=== PATIENT | female | born 2000 | race Caucasian/White ===

== ENCOUNTER 2020-08-04 23:14 | Emergency (ER) | payer SELFPAY ==
--- NOTE | 2020-08-04 23:42 | EDM.PDOC ---
ED HPI GENERAL MEDICAL PROBLEM - General Stated Complaint: PAIN UNDER RIBS Time Seen by Provider: 08/04/20 23:45 Source of Information: Reports: Patient History Limitations: Reports: No Limitations - History of Present Illness INITIAL COMMENTS - FREE TEXT/NARRATIVE: Patient presented to the ED because of bilateral rib pain which is worse with movements and breathing. The pain is sharp,8/10. There is no asociated cough, fever, or chills. Bilateral Abdomen Pain Score (Numeric/FACES): 8 - Related Data Home Meds: Home Meds Multivitamin 1 each PO DAILY 08/04/20 [History] Naproxen 500 mg PO BID #15 tablet 08/04/20 [Rx] OLANZapine [ZyPREXA] 2.5 mg PO DAILY 08/04/20 [History] buPROPion [Wellbutrin] 150 mg PO DAILY 08/04/20 [History] ED ROS GENERAL - Review of Systems Review Of Systems: See Below Constitutional: Reports: No Symptoms HEENT: Reports: No Symptoms Respiratory: Reports: No Symptoms Cardiovascular: Reports: No Symptoms Endocrine: Reports: No Symptoms GI/Abdominal: Reports: No Symptoms Musculoskeletal: Reports: No Symptoms Skin: Reports: No Symptoms Neurological: Reports: No Symptoms Psychiatric: Reports: No Symptoms ED EXAM, GENERAL - Physical Exam Exam: See Below Exam Limited By: No Limitations General Appearance: Alert Ears: Normal External Exam Nose: Normal Inspection Throat/Mouth: Normal Inspection Head: Atraumatic Neck: Normal Inspection Respiratory/Chest: No Respiratory Distress, Other (tendernes below the left and right rib) GI/Abdominal: Normal Bowel Sounds, Soft, Non-Tender, No Organomegaly Rectal (Female) Exam: Normal Exam Back Exam: Normal Inspection, Full Range of Motion Extremities: Normal Inspection, Normal Range of Motion, Non-Tender Neurological: Alert, Oriented, CN II-XII Intact, Normal Cognition Psychiatric: Normal Affect, Normal Mood Skin Exam: Warm, Dry, Intact Course - Vital Signs Text/Narrative:: Refused Toradol 60 mg IM Last Recorded V/S: Last Vital Signs Temp 36.9 C 08/04/20 23:39 Pulse 66 08/04/20 23:39 Resp 16 08/04/20 23:39 BP 110/70 08/04/20 23:39 Pulse Ox 100 08/04/20 23:39 - Orders/Labs/Meds Meds: Medications Discontinued Medications Generic Name Dose Route Start Last Admin Trade Name Kevan PRN Reason Stop Dose Admin Ketorolac Tromethamine 60 mg 08/04/20 23:36 08/04/20 23:50 Toradol IM 08/04/20 23:37 60 mg ONETIME ONE Administration Departure - Departure Time of Disposition: 23:45 Disposition: Home, Self-Care 01 Clinical Impression: Pleurisy - Discharge Information Prescriptions: Naproxen 500 mg PO BID #15 tablet Instructions: Pleurisy, [id number] Referrals: PCP,None [Primary Care Provider] - Additional Instructions: Please read discharge instructions on pleurisy Naproxen 500 mg twice daily for 1 week Follow up with your doctor regarding your weight loss Sepsis Event Note (ED) - Focused Exam Vital Signs: Vital Signs Temp Pulse Resp BP Pulse Ox 08/04/20 23:39 36.9 C 66 16 110/70 100
[2020-08-04] MEDS: Ketorolac 60 MG/2 ML SDV IM ONE ×2 (23:44→23:50)
== END 2020-08-04 23:49 | disposition home or self-care (01) ==
LOC: FB.ED 23:14
DX: R09.1 Pleurisy (principal)
CPT/HCPCS: 99283; J1885

== ENCOUNTER 2020-09-12 02:55 | Emergency (ER) | payer SELFPAY ==
[2020-09-12] MEDS ORDERED: Acetaminophen 500 MG Tab PO ONE (03:11)
[2020-09-12] MEDS ORDERED: Cyclobenzaprine 10 MG Tab PO ONE (03:11)
[2020-09-12] MEDS ORDERED: Naproxen 500 MG Tab PO ONE (03:11)
--- NOTE | 2020-09-12 03:17 | EDM.PDOC ---
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 The pain intensifies with breathing and movents. there is no fever or chills/cough or cold symptoms. 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: Other (See Below) Other DIRECTOR GEOPHYSICAL LABORATORY History: Ovarian cysts Psychiatric History: Reports: Anxiety, Depression, OCD, PTSD - Infectious Disease History Infectious Disease History: Reports: Chicken Pox Social & Family History - Family History Family Medical History: No Pertinent Family History - Caffeine Use Caffeine Use: Reports: Tea ED ROS GENERAL - Review of Systems Review Of Systems: See Below Constitutional: Reports: No Symptoms HEENT: Reports: No Symptoms Respiratory: Reports: No Symptoms Cardiovascular: Reports: No Symptoms Endocrine: Reports: No Symptoms GI/Abdominal: Reports: No Symptoms : Reports: No Symptoms Musculoskeletal: Reports: No Symptoms Skin: Reports: No Symptoms Neurological: Reports: No Symptoms Psychiatric: Reports: No Symptoms ED EXAM, GENERAL - Physical Exam Exam: See Below Exam Limited By: No Limitations General Appearance: Alert, No Apparent Distress Eye Exam: Bilateral Eye: PERRL Ears: Normal External Exam, Normal Canal Nose: Normal Inspection, Normal Mucosa Throat/Mouth: Normal Inspection, Normal Lips, Normal Teeth, Normal Gums Head: Atraumatic, Normocephalic Neck: Normal Inspection, Supple, Non-Tender, Full Range of Motion Respiratory/Chest: No Respiratory Distress, Lungs Clear, Normal Breath Sounds Cardiovascular: Normal Peripheral Pulses, Regular Rate, Rhythm, No Edema, No Gallop GI/Abdominal: Normal Bowel Sounds, Soft, Non-Tender, No Organomegaly Back Exam: Normal Inspection, Full Range of Motion Extremities: Normal Inspection, Normal Range of Motion, Non-Tender Neurological: Alert, Oriented Course - Vital Signs Text/Narrative:: Naproxen 500 mg po x1 Tylenol 1000 mg po x1 Flexeril 10 mg PO x1 Last Recorded V/S: Last Vital Signs Temp 36.8 C 09/12/20 03:26 Pulse 83 09/12/20 03:26 Resp 18 09/12/20 03:26 BP 111/71 09/12/20 03:26 Pulse Ox 100 09/12/20 03:26 - Orders/Labs/Meds Meds: Medications Discontinued Medications Generic Name Dose Route Start Last Admin Trade Name Freq PRN Reason Stop Dose Admin Acetaminophen 1,000 mg 09/12/20 03:11 09/12/20 03:36 Tylenol Extra Strength PO 09/12/20 03:12 1,000 mg ONETIME ONE Administration Cyclobenzaprine HCl 10 mg 09/12/20 03:11 09/12/20 03:36 Flexeril PO 09/12/20 03:12 10 mg ONETIME ONE Administration Naproxen 500 mg 09/12/20 03:11 09/12/20 03:36 Naprosyn PO 09/12/20 03:12 500 mg ONETIME ONE Administration Departure - Departure Time of Disposition: 03:40 Disposition: Home, Self-Care 01 Condition: Good Clinical Impression: Muscle strain - Discharge Information Prescriptions: Cyclobenzaprine [Flexeril] 10 mg PO BID PRN #15 tab PRN Reason: Muscle Spasm Naproxen 500 mg PO BID PRN #15 tablet PRN Reason: Pain Instructions: Muscle Strain, [id number] Referrals: Kathryn Lewis NP [Primary Care Provider] - Forms: ED Department Discharge Additional Instructions: Please read discharge instructions on muscle strain Take the following medication all at the same time for better pain relief Naproxen 500 mg, tylenol 1000 mg and flexeril 10 mg twice daily for pain and muscle spasm Follow up as needed
== END 2020-09-12 03:37 | disposition home or self-care (01) ==
LOC: FB.ED 02:55
DX: S29.011A Strain of muscle and tendon of front wall of thorax, initial encounter (principal); F41.9 Anxiety disorder, unspecified; F32.9 Major depressive disorder, single episode, unspecified; Z79.899 Other long term (current) drug therapy; X50.0XXA Overexertion from strenuous movement or load, initial encounter; Y92.89 Other specified places as the place of occurrence of the external cause; Y99.0 Civilian activity done for income or pay
CPT/HCPCS: 99283; A9270

== ENCOUNTER 2020-09-21 14:00 | Emergency (ER) | payer MEDICAID ==
--- NOTE | 2020-09-21 14:52 | EDM.PDOC ---
ED HPI GENERAL MEDICAL PROBLEM - General Chief Complaint: General Stated Complaint: MUSCLE PAIN/BLOOD IN URINE Time Seen by Provider: 09/21/20 14:25 Source of Information: Reports: Patient History Limitations: Reports: No Limitations - History of Present Illness INITIAL COMMENTS - FREE TEXT/NARRATIVE: lower abd pain for one month , today not any worse , just could not get in to see her PCP , had been given naproxen and flexeril and both not working very well has low grade fever has no chills, no cough no nausea or vomiting has constipation diagnosed with PCOS has been on multiple psych medications Onset: Gradual Onset Date: 09/21/20 Duration: Week(s): (4), Getting Worse, Waxing/Waning Location: Reports: Abdomen Quality: Reports: Ache, Dull Severity: Moderate Improves with: Reports: None Worsens with: Reports: Movement Context: Reports: Other Associated Symptoms: Reports: Loss of Appetite, Malaise Treatments 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 Abdominal Pain Score (Numeric/FACES): 5 - Related Data Allergies Allergy/AdvReac Type Severity Reaction Status Date / Time No Known Allergies Allergy Verified 09/21/20 14:21 Home Meds: Home Meds OLANZapine [ZyPREXA] 2.5 mg PO DAILY 08/04/20 [History] buPROPion [Wellbutrin] 150 mg PO DAILY 08/04/20 [History] Naproxen 500 mg PO BID PRN #15 tablet 09/12/20 [Rx] Lactobacillus Acidophilus [Acidophilus] 1 each PO BID #60 cap 09/21/20 [Rx] Magnesium Citrate 296 ml PO ONETIME #296 solution 09/21/20 [Rx] Sulfamethoxazole/Trimethoprim [Bactrim Ds Tablet] 1 each PO BID #20 tablet 09/21/20 [Rx] Past Medical History DIRECTOR MACHINE 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: Reports: Other (See Below) Other DIRECTOR MACHINE History: Ovarian cysts, PCOS Psychiatric History: Reports: Anxiety, Bipolar, Depression, OCD, PTSD, Suicide Attempt - Infectious Disease History Infectious Disease History: Reports: Chicken Pox Social & Family History - Family History Family Medical History: No Pertinent Family History - Tobacco Use Tobacco Use Status *Q: Current Some Day Tobacco User Years of Tobacco use: 4 Packs/Tins Daily: 0.1 - Caffeine Use Caffeine Use: Reports: Coffee, Energy Drinks, Soda, Tea - Recreational Drug Use Recreational Drug Use: Yes Drug Use in Last 12 Months: Yes Recreational Drug Type: Reports: Marijuana/Hashish Recreational Drug Use Frequency: Socially ED ROS GENERAL - Review of Systems Review Of Systems: Comprehensive ROS is negative, except as noted in HPI. Psychiatric: Reports: Anxiety Hematologic/Lymphatic: Reports: No Symptoms Immunologic: Reports: No Symptoms ED EXAM, GENERAL - Physical Exam Exam: See Below Exam Limited By: No Limitations General Appearance: Alert, WD/WN, No Apparent Distress Eye Exam: Bilateral Eye: EOMI Ears: Normal External Exam Nose: Normal Inspection, Normal Mucosa Throat/Mouth: Normal Oropharynx Head: Atraumatic, Normocephalic Neck: Normal Inspection, Supple, Non-Tender Respiratory/Chest: Lungs Clear, Normal Breath Sounds Cardiovascular: Normal Peripheral Pulses, Regular Rate, Rhythm GI/Abdominal: Abnormal Bowel Sounds (hypoactive ). No: Guarding, Rigid, Rebound, Tender Back Exam: Normal Inspection, Full Range of Motion Extremities: Normal Inspection, Normal Range of Motion Neurological: Alert, Oriented, CN II-XII Intact Course - Vital Signs Last Recorded V/S: Last Vital Signs Temp 37.3 C 09/21/20 15:50 Pulse 53 L 09/21/20 15:50 Resp 16 09/21/20 15:50 BP 112/80 09/21/20 15:50 Pulse Ox 99 09/21/20 15:50 - Orders/Labs/Meds Orders: Active Orders 24 hr Category Date Time Status Abdomen 2V AP Flat Upright [CR] Stat Exams 09/21/20 14:25 Taken CULTURE URINE [RM] Stat Lab 09/21/20 14:30 Received Labs: Laboratory Tests 09/21/20 09/21/20 Range/Units 14:30 14:30 Urine Color Yellow (YELLOW) Urine Appearance Slightly cloudy (CLEAR) Urine pH 5.0 (5.0-6.5) Ur Specific Ridge 1.025 (1.010-1.025) Urine Protein Negative (NEGATIVE) mg/dL Urine Glucose (UA) Normal (NORMAL) mg/dL Urine Ketones Negative (NEGATIVE) mg/dL Urine Occult Blood Moderate H (NEGATIVE) Urine Nitrite Negative (NEGATIVE) Urine Bilirubin Negative (NEGATIVE) Urine Urobilinogen Normal (NEGATIVE) mg/dL Ur Leukocyte Esterase Large H (NEGATIVE) Urine RBC 5-10 H (0-5) Urine WBC 10-20 H (0-5) Ur Squamous Epith Cells Moderate H (NS,R,O) Urine Bacteria Moderate H (NS) Urine Mucus Moderate H (NS) Urine HCG, Qual Negative (NEGATIVE) Meds: Medications Discontinued Medications Generic Name Dose Route Start Last Admin Trade Name Freq PRN Reason Stop Dose Admin Bisacodyl 10 mg 09/21/20 15:50 09/21/20 16:16 Dulcolax PO 09/21/20 15:51 10 mg ONETIME ONE Administration Bisacodyl 10 mg 09/21/20 15:51 09/21/20 16:16 Dulcolax RECTAL 09/21/20 15:52 10 mg ONETIME ONE Administration Ceftriaxone Sodium 1 gm 09/21/20 15:52 09/21/20 16:16 Rocephin IM 09/21/20 15:53 1 gm ONETIME ONE Administration Magnesium Hydroxide 30 ml 09/21/20 15:50 09/21/20 16:16 Milk Of Magnesia PO 09/21/20 15:51 30 ml ONETIME ONE Administration - Re-Assessments/Exams Free Text/Narrative Re-Assessment/Exam: 09/22/20 09:13 pt had xray done and UA noted have have excessive gas and stool in the bowel : treated for that then also noted to have UTI pt encouraged to take probiotics to help stop abd bloating and cramping Will FU with her PCP as needed Did feel improved before discharge Departure - Departure Time of Disposition: 16:35 Disposition: Home, Self-Care 01 Condition: Good Clinical Impression: UTI (urinary tract infection), Constipation - Discharge Information *PRESCRIPTION DRUG MONITORING PROGRAM REVIEWED*: Not Applicable *COPY OF PRESCRIPTION DRUG MONITORING REPORT IN PATIENT MARIA E: Not Applicable Prescriptions: Lactobacillus Acidophilus [Acidophilus] 1 each PO BID #60 cap Sulfamethoxazole/Trimethoprim [Bactrim Ds Tablet] 1 each PO BID #20 tablet Magnesium Citrate 296 ml PO ONETIME #296 solution Instructions: Constipation, Adult, [id number], Urinary Tract Infection, Adult, [id number] Referrals: Kathryn Lewis, REAL ESTATE ANALYST [Primary Care Provider] - Forms: ED Department Discharge, ED Return to Work/School Form Sepsis Event Note (ED) - Evaluation Sepsis Screening Result: No Definite Risk - My Orders Last 24 Hours: My Active Orders 09/21/20 14:25 Abdomen 2V AP Flat Upright [CR] Stat 09/21/20 14:30 CULTURE URINE [RM] Stat - Assessment/Plan Last 24 Hours: My Active Orders 09/21/20 14:25 Abdomen 2V AP Flat Upright [CR] Stat 09/21/20 14:30 CULTURE URINE [RM] Stat
[2020-09-21] MEDS ORDERED: Magnesium Hydroxide 400 MG/5 ML Susp 30 ML Cup PO ONE (15:50)
[2020-09-21] MEDS ORDERED: Bisacodyl 5 MG Tab PO ONE (15:50)
[2020-09-21] MEDS ORDERED: Bisacodyl 10 MG Supp RECTAL ONE (15:51)
[2020-09-21] MEDS ORDERED: cefTRIAXone 1 GM Vial IM ONE (15:52)
--- NOTE | 2020-09-22 13:02 | CR ---
INDICATION: Abdominal pain around hip area, history of PCOS. ABDOMEN TWO VIEW: Four images of the abdomen were obtained in supine and upright projections revealing a nonspecific pattern of gas and feces without evidence of free air or obstruction. No organomegaly, mass lesions, or pathologic calcifications were noted. Umbilical piercing is noted in place. IMPRESSION: Nonacute abdomen. MTDD
== END 2020-09-21 16:35 | disposition home or self-care (01) ==
LOC: FB.ED 14:00
DX: N39.0 Urinary tract infection, site not specified (principal); K59.00 Constipation, unspecified; F31.9 Bipolar disorder, unspecified; F41.9 Anxiety disorder, unspecified; F17.210 Nicotine dependence, cigarettes, uncomplicated; Z79.899 Other long term (current) drug therapy
CPT/HCPCS: 74019; 81001; 81025; 87086; 87088; 87186; 96372; 99284; A9270; J0696; 99283

== ENCOUNTER 2020-09-28 01:35 | Emergency (ER) | payer MEDICAID ==
[2020-09-28] MEDS ORDERED: Ibuprofen 800 MG Tab PO ONE (02:27)
--- NOTE | 2020-09-28 02:32 | EDM.PDOC ---
ED HPI GENERAL MEDICAL PROBLEM - General Chief Complaint: General Stated Complaint: HEADACHE Time Seen by Provider: 09/28/20 02:28 Source of Information: Reports: Patient History Limitations: Reports: No Limitations - History of Present Illness INITIAL COMMENTS - FREE TEXT/NARRATIVE: Reports that she slipped on ice and fell. C/o Headache and right Knee Pain. No Loss of consciousness. Denied any neck pain. No vomiting or bleeding from the Ear. She thinks she may have bruised the right Knee. Able to ambulate. Presented to the ER for further evaluation Onset: Today Onset Date: 09/28/20 Duration: Hour(s): (one hour ago) Location: Reports: Head, Lower Extremity, Right Worsens with: Reports: Movement R lat knee, frontal headache, lower back pain Pain Score (Numeric/FACES): 8 - Related Data Allergies Allergy/AdvReac Type Severity Reaction Status Date / Time No Known Allergies Allergy Verified 09/21/20 14:21 Home Meds: Home Meds Naproxen 500 mg PO BID PRN #15 tablet 09/12/20 [Rx] Sulfamethoxazole/Trimethoprim [Bactrim Ds Tablet] 1 each PO BID #20 tablet 09/21/20 [Rx] Nitrofurantoin Monohyd/M-Cryst [Macrobid 100 mg Capsule] 100 mg PO BID #20 capsule 09/23/20 [Rx] Albuterol [Ventolin HFA] 2 puff .XX Q4H PRN 09/28/20 [History] buPROPion HCL [Wellbutrin Xl] 150 mg PO DAILY 09/28/20 [History] hydrOXYzine pamoate [Vistaril] 25 mg PO TID PRN 09/28/20 [History] Past Medical History Respiratory History: Reports: Asthma, Other (See Below) Other Respiratory History: exercise induced asthma Genitourinary History: Reports: UTI, 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: Reports: Other (See Below) Other GROUP SUPERVISOR YARD History: Ovarian cysts, PCOS Musculoskeletal History: Reports: Fracture Other Musculoskeletal History: hx fx L 2nd digit, wrist fx, Neurological History: Reports: Migraines, Seizure, Other (See Below) Other Neuro History: hx pseudo-seizures Psychiatric History: Reports: Anxiety, Bipolar, Depression, OCD, Psych Hospitalization(s), PTSD, Suicide Attempt, Other (See Below) Endocrine/Metabolic History: Reports: Obesity/BMI 30+ - Infectious Disease History Infectious Disease History: Reports: Chicken Pox Social & Family History - Family History Family Medical History: No Pertinent Family History - Tobacco Use Tobacco Use Status *Q: Current Every Day Tobacco User Years of Tobacco use: 1 Packs/Tins Daily: 0.4 - Caffeine Use Caffeine Use: Reports: Coffee, Energy Drinks, Soda, Tea - Recreational Drug Use Recreational Drug Type: Reports: Marijuana/Hashish Recreational Drug Use Frequency: Socially ED ROS GENERAL - Review of Systems Review Of Systems: See Below Constitutional: Reports: No Symptoms HEENT: Reports: No Symptoms Respiratory: Reports: No Symptoms Cardiovascular: Reports: No Symptoms Endocrine: Reports: No Symptoms GI/Abdominal: Reports: No Symptoms : Reports: No Symptoms Musculoskeletal: Reports: Other (right knee pain) Skin: Reports: No Symptoms Neurological: Reports: Headache Psychiatric: Reports: No Symptoms Hematologic/Lymphatic: Reports: No Symptoms Immunologic: Reports: No Symptoms ED EXAM, GENERAL - Physical Exam Exam: See Below Exam Limited By: No Limitations General Appearance: Alert, WD/WN, No Apparent Distress Eye Exam: Bilateral Eye: PERRL Ear Exam: Bilateral Ear: Auricle Normal, Canal Normal Nose: Normal Inspection, Normal Mucosa Throat/Mouth: Normal Inspection, Normal Lips, Normal Oropharynx Head: Atraumatic, Normocephalic Respiratory/Chest: No Respiratory Distress, Lungs Clear, Normal Breath Sounds, No Accessory Muscle Use Cardiovascular: Normal Peripheral Pulses, Regular Rate, Rhythm, No Edema, No JVD GI/Abdominal: Normal Bowel Sounds, Soft, Non-Tender, No Organomegaly, No Distention Extremities: Normal Inspection, Normal Range of Motion, Non-Tender, No Pedal Edema, Normal Capillary Refill Neurological: Alert, Oriented, CN II-XII Intact, Normal Cognition, Normal Gait, Normal Reflexes Psychiatric: Normal Affect, Normal Mood Lymphatic: No Adenopathy Course - Vital Signs Last Recorded V/S: Last Vital Signs Temp 36.7 C 09/28/20 01:35 Pulse 102 H 09/28/20 01:35 Resp 18 09/28/20 01:35 BP 119/76 09/28/20 01:35 Pulse Ox 100 09/28/20 01:35 - Orders/Labs/Meds Meds: Medications Discontinued Medications Generic Name Dose Route Start Last Admin Trade Name Freq PRN Reason Stop Dose Admin Ibuprofen 800 mg 09/28/20 02:27 Motrin PO 09/28/20 02:28 ONETIME ONE Departure - Departure Time of Disposition: 02:31 Disposition: Home, Self-Care 01 Condition: Good Clinical Impression: Fall due to ice or snow - Discharge Information *PRESCRIPTION DRUG MONITORING PROGRAM REVIEWED*: No *COPY OF PRESCRIPTION DRUG MONITORING REPORT IN PATIENT MARIA E: No Instructions: Fall Prevention in the Home, Adult, [id number], Knee Sprain, Adult Referrals: Kathryn Lewis PRODUCE DEPARTMENT MANAGER [Primary Care Provider] - Forms: ED Department Discharge Additional Instructions: Follow with PCP Tylenol or Ibuprofen for pain Return if symptoms worsen Call your Physician or Return to Emergency Department if: * Your condition worsens in any way. * You develop fever greater than 100.4. * You have vomitting that does not stop with medications. * You have pain that is not controlled with medications. Sepsis Event Note (ED) - Evaluation Sepsis Screening Result: No Definite Risk - Focused Exam Vital Signs: Vital Signs Temp Pulse Resp BP Pulse Ox 09/28/20 01:35 36.7 C 102 H 18 119/76 100
== END 2020-09-28 02:45 | disposition home or self-care (01) ==
LOC: FB.ED 01:35
DX: M25.561 Pain in right knee (principal); R51.9 Headache, unspecified; M54.5 Low back pain; J45.909 Unspecified asthma, uncomplicated; E66.9 Obesity, unspecified; Z68.32 Body mass index [BMI] 32.0-32.9, adult; Z72.0 Tobacco use; Z79.899 Other long term (current) drug therapy; W00.0XXA Fall on same level due to ice and snow, initial encounter
CPT/HCPCS: 99282; 99283; A9270